=== PATIENT | male | born 1955 ===

== ENCOUNTER 2018-04-11 08:48 | Inpatient (IN) ==
[2018-04-05 11:59] LABS: Blood Urea Nitrogen 24 mg/dl (8-23)
[2018-04-05 12:08] LABS: Basophils # (Auto) 0 K/mcL (0.0-0.3); Basophils % (Auto) 0.3 % (0.0-2.0); Eosinophils # (Auto) 0.1 K/mcL (0.0-0.7); Eosinophils % (Auto) 1.6 % (0.0-7.0); Granulocytes % (Auto) 68.3 % (38.0-78.0); Lymphocytes # (Auto) 1.6 K/mcL (1.5-4.8); Lymphocytes % (Auto) 22.9 % (15.5-49.0); Mean Cell Volume 83.7 fL (80.0-100.0); Mean Corpuscular HGB Conc 32.5 g/dL (31.0-36.0); Monocytes # (Auto) 0.5 K/mcL (0.1-0.9); Monocytes % (Auto) 6.9 % (1.0-12.0); Platelet Count 203 K/mcL (140-440); RBC 5.57 M/mcL (4.50-5.90); Red Cell Distribution Width 14.6 % (11.5-14.5)
[2018-04-05 13:23] LABS: Appearance,Urine CLEAR; Bilirubin,Urine NEG (NEG); Color,Urine YELLOW; Glucose,Urine (UA) NEGATIVE (NEG); Leukocyte Esterase,Urine NEG /uL (NEG); Protein,Urine NEG (NEG); Specific Gravity,Urine 1.023 (1.000-1.035); Urine Blood NEG mg/dL (<0.03); Urobilinogen,Urine NEG (NEG)
[~2018-04-11 08:48] MED LIST: CELECOXIB 200 MG CAPSULE PO SCH; PREGABALIN 75 MG CAPSULE PO SCH; ceFAZolin 1 GM VIAL IV SCH; oxyCODONE 10 MG TAB.ER.12H PO SCH
[2018-04-11] MEDS ORDERED: SUCCINYLCHOLINE 20 MG/ML ML IV ONE (11:00)
[2018-04-11] MEDS ORDERED: fentaNYL 250 MCG/5 ML VIAL IV ONE (11:00)
[2018-04-11] MEDS ORDERED: DEXAMETHASONE 10 MG/ML VIAL IV ONE (11:00)
[2018-04-11] MEDS ORDERED: ONDANSETRON 4 MG/2 ML VIAL IV ONE (11:00)
[2018-04-11] MEDS ORDERED: ROPIVACAINE HCL/PF 30 ML VIAL IJ ONE (11:00)
[2018-04-11] MEDS ORDERED: MIDAZOLAM 5 MG/5 ML VIAL IV ONE (11:00)
[2018-04-11] MEDS ORDERED: TRANEXAMIC ACID 1,000 MG/10 ML VIAL IV ONE ×2 (11:00→12:28)
[2018-04-11] MEDS ORDERED: LIDOCAINE HCL/PF 100 MG/5 ML SYRINGE IV ONE (11:00)
[2018-04-11] MEDS ORDERED: PROPOFOL 200 MG/20 ML VIAL IV ONE (11:00)
[2018-04-11] MEDS ORDERED: GENTAMICIN SULFATE 800 MG/20 ML VIAL IR ONE (12:16)
[2018-04-11] MEDS ORDERED: PROMETHAZINE 25 MG/ML VIAL IV PRN (12:22)
[2018-04-11] MEDS ORDERED: KETOROLAC 15 MG/ML VIAL IV PRN (12:22)
[2018-04-11] MEDS ORDERED: LACTATED RINGERS 250 ML IV PRN (12:22)
[2018-04-11] MEDS ORDERED: ACETAMINOPHEN 1,000 MG/100 ML BOTTLE IV ONE (12:22)
[2018-04-11] MEDS ORDERED: NALOXONE HCL 0.4 MG/ML VIAL IV PRN (12:22)
[2018-04-11] MEDS ORDERED: ONDANSETRON 4 MG/2 ML VIAL IV PRN ×2 (12:22→12:28)
[2018-04-11] MEDS ORDERED: BENZOCAINE/MENTHOL 1 LOZENGE PO PRN ×2 (12:22→12:28)
[2018-04-11] MEDS ORDERED: MEPERIDINE 25 MG/ML SYRINGE IV PRN (12:22)
[2018-04-11] MEDS ORDERED: FLUMAZENIL 0.1 MG/ML ML IV PRN (12:22)
[2018-04-11] MEDS ORDERED: IPRATROPIUM/ALBUTEROL 3 ML AMPUL.NEB NEB PRN (12:22)
[2018-04-11] MEDS ORDERED: diphenhydrAMINE 50 MG/ML VIAL IV PRN (12:22)
--- NOTE | 2018-04-11 12:25 | Discharge Summary ---
Ortho Discharge - TSA - Patient Instructions Diet: Regular Diet Activity: non weight bearing Total Shoulder Protocol: Leave immobilizer in place except for bathing and ROM. Abduction pillow. Continue to wear sling until seen by physician. Codman Pendulum : These exercises use momentum produced by your body to move your shoulder joint. Bend your knees and shift your weight to your front leg, then back, allowing your arm to swing in the same directions. Using the same technique, alternately shift your weight between your right and left legs, allowing your arm to swing from side to side. These exercises are also performed in counterclockwise and clockwise circular motions. Typically these exercises are performed several times per day, for a set number repetitions or minutes, such as 20 times in a row or 5 minutes at a time. Dressing Care: May shower in 2 days - Follow Up Plan Follow Up Appointments: Patricia Su PA-C [Physician Corporate Legal Secretary] - 04/26/18 8:40 am Disposition: Home, Self-Care Prognosis: Good Rehab Potential: Good I certify that the patient requires SNF services: No Overall status at discharge: patient is progressing back to baseline
--- NOTE | 2018-04-11 12:25 | Brief Operative Note ---
Pre-op diagnosis: left failed tsa Post-op diagnosis: same Procedure: revision left tsa to reverse tsa Grafts/Implants: Yes Anesthesia: GETA Findings: ruptured subscapularis Complications: none Surgeon: Rasheed Cole Dependency Counselor: Patricia Su Estimated blood loss (cc): 200 Specimens Removed/Pathology: none sent Condition: stable Disposition: PACU
[2018-04-11] MEDS ORDERED: MAGNESIUM HYDROXIDE 30 ML ORAL.SUSP PO PRN (12:28)
[2018-04-11] MEDS ORDERED: ONDANSETRON 4 MG ODT TABLET SL PRN (12:28)
[2018-04-11] MEDS ORDERED: FLEETS ADULT ENEMA PR PRN (12:28)
[2018-04-11] MEDS ORDERED: POLYETHYLENE GLYCOL 3350 17 GM PACKET PO PRN (12:28)
[2018-04-11] MEDS ORDERED: KETOROLAC 30 MG/ML VIAL IV PRN (12:28)
[2018-04-11] MEDS ORDERED: BISACODYL 10 MG SUPP.RECT PR PRN (12:28)
[2018-04-11] MEDS ORDERED: LACTATED RINGERS 1,000 ML IV SCH (12:30)
[2018-04-11] MEDS: fentaNYL 100 MCG/2 ML VIAL IV PRN ×2 (13:05→13:08)
--- NOTE | 2018-04-11 13:29 | XRay Report ---
HISTORY: Postop left arthroplasty FINDINGS: The previously seen left shoulder prosthesis has been removed and replaced with a reverse shoulder prosthesis. The new prosthesis is well-positioned. There is no fracture or subluxation. Distal end of the clavicle had previously been resected. IMPRESSION: Well-positioned left shoulder prosthesis Interpreted and Authenticated by: Rob Medina 04/11/18
[2018-04-11] MEDS: 0.9 % SODIUM CHLORIDE 1,000 ML IV SCH ×2 (14:19→20:47)
[2018-04-11] MEDS: 0.9 % SODIUM CHLORIDE 10 ML SYRINGE IV SCH ×2 (14:20→22:53)
--- NOTE | 2018-04-11 14:28 | Operative Note ---
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 PROCEDURE: Revision of total shoulder arthroplasty to reverse total shoulder arthroplasty, left shoulder. SURGEON: Judy Cole M.D. JAVA CORE DEVELOPER SURGEON: Patricia Su PA-C ANESTHESIA: General. ESTIMATED BLOOD LOSS: 250 mL COMPLICATIONS: None noted. SPECIMENS REMOVED: None. DRAINS: None. IMPLANTS: DePuy cementless metaglene HARDY coated cementless, DePuy locking metaglene screw 4.5 x 30 x2, 4.5 x 18 non-locking x2, DePuy Delta XTEND eccentric glenosphere 38 mm, Delta XTEND modular eccentric epiphysis size 1 left HARDY coated cementless, DePuy Delta XTEND humeral polyethylene clip 38 +9 standard. INDICATIONS: The patient had a previous shoulder arthroplasty. He has had instability of the shoulder and radiographs and a CTA have confirmed failed subscapularis. I did not feel like it was repairable so after a long discussion about treatment options we elected to proceed with a reverse total shoulder arthroplasty. The risks and benefits were discussed with the patient in detail including, but not limited to, the risks of anesthesia, problems with the heart or lungs related to anesthesia, infection, compromise or injury to the nerves and blood vessels, deep venous thrombosis, pulmonary embolism, pneumonia, continued pain after surgery, worsening pain or symptoms after surgery, swelling, loss of motion, instability, fracture, arm length discrepancy, and need for repeat surgery. DESCRIPTION OF PROCEDURE: The patient was seen in the pre-anesthesia waiting room where all questions were answered and the correct side and site were identified and marked. The patient was transferred to the operating room and administered the anesthetic and given preoperative antibiotics. A timeout was then called. The patient was placed in the modified beach chair position with all prominences well padded. The extremity was prepped and draped from the fingers up to the neck. A standard deltopectoral skin incision was created. Dissection was carried down to the deltopectoral groove and the cephalic vein was isolated medially and retracted laterally with the deltoid. Retractors were placed and the coracobrachialis was split up to the coracoacromial ligament allowing retraction of the conjoined tendon. We visualized the subscapularis, which was found to be completely torn and retracted and was not repairable. The supraspinatus and infraspinatus were present but thinning and I cut the tendons. A capsular release was performed in a posterior subperiosteal direction along the humerus. The humeral head was then dislocated. We removed the head, then we removed the proximal base. We changed to 20 degree retroversion and then we reamed with the proximal Delta XTEND reverse total shoulder instrumentation. The proximal humerus was then cut and we placed retractors to go to the glenoid. Attention was then turned to the glenoid. Retractors were placed for optimal visualization and the labrum was excised in its entirety. We used an osteotome to remove the polyethylene. I removed the cement from the 3 pegs as well as the central reamer. A centralizing Steinmann pin was placed into the previous hole where the polyethylene liner was. We reamed over the pin to remove all the cartilage and get to a good base for the prosthesis. The drill was then placed over for the central peg. A cementless Metaglene was then impacted into place. We then drilled, measured, and placed the four screws starting inferior, then superior, then anterior, and finally posterior. The superior locking screw was lined up at the base of the coracoid process. We then impacted the head onto the Metaglene and tightened down in a standard fashion. Attention was then turned back to the humerus. Proximal reaming was performed off the intramedullary guide into the humeral head, using the eccentric guide to allow best coverage. We again set version and broached up to a stable implant. Trials were placed and good tension, motion, and stability were obtained at this point. Trials were removed and the final press fit femoral prosthesis was impacted into place with measured version. The final polyethylene was placed and the shoulder was reduced and again checked for motion, tension, and stability. We irrigated with 3 liters of antibiotic saline and closed the subscapularis with # 2 FiberWire. We irrigated again and closed the deltopectoral interval with several # 0 Vicryl figure of eight sutures. The subcutaneous layer was closed with 2-0 Vicryl and the skin was closed with 4-0 Monocryl in a subcuticular fashion. A sterile pressure dressing was applied and the patient was placed into an abduction sling. All needle and sponge counts were correct. The patient was transferred to the recovery room in stable condition. [email or web address] Job ID: [id number] Doc ID: [id number] Judy Cole MD
[2018-04-11] MEDS: ceFAZolin 1 GM VIAL IV SCH ×2 (17:20→23:25)
[2018-04-11] MEDS: HYDROcodone/APAP 10/325MG TABLET PO PRN ×2 (19:00→23:25)
[2018-04-11] MEDS: METHOCARBAMOL 750 MG TABLET PO PRN (19:00)
[2018-04-11] MEDS: DOCUSATE SODIUM 100 MG CAPSULE PO SCH (20:42)
[2018-04-11] MEDS ORDERED: SENNOSIDES 1 TABLET PO SCH (21:00)
[2018-04-12] MEDS: METHOCARBAMOL 750 MG TABLET PO PRN (03:42)
[2018-04-12] MEDS: HYDROcodone/APAP 10/325MG TABLET PO PRN ×2 (03:42→08:04)
[2018-04-12] MEDS: 0.9 % SODIUM CHLORIDE 1,000 ML IV SCH (04:44)
[2018-04-12] MEDS: 0.9 % SODIUM CHLORIDE 10 ML SYRINGE IV SCH (05:01)
--- NOTE | 2018-04-12 07:52 | Orthopedic Progress Note ---
Subjective Patient information: Note initiated : 04/12/18 at 7:51 am Service Date, if different from initiated Date: [] Patient: Brenden Mitchell 62 y/o M admitted on 04/11/18 for Left Total Shoulder Arthroplasty Converting to. Chief Complaint: [] Interval history: doing well. no complaints Objective Vital signs: Vital Signs Temp Pulse Pulse Resp BP BP Pulse Ox 04/12/18 03:38 98.5 F 90 18 113/82 94 04/11/18 23:22 97.9 F 87 18 118/76 91 04/11/18 20:20 98.3 F 99 H 22 130/86 93 04/11/18 20:00 93 04/11/18 16:56 91 H 133/82 96 04/11/18 16:28 89 04/11/18 15:56 89 127/83 96 04/11/18 15:26 86 120/70 98 04/11/18 14:56 89 145/91 98 04/11/18 14:41 89 153/91 98 04/11/18 14:26 86 154/94 98 04/11/18 14:11 84 158/95 98 04/11/18 13:57 85 167/96 98 04/11/18 13:40 98 04/11/18 13:35 98.1 F 89 16 161/90 97 04/11/18 13:25 97.3 F 84 12 175/99 97 04/11/18 13:10 96.7 F L 81 11 L 146/104 100 04/11/18 13:00 87 14 162/102 100 04/11/18 12:55 91 H 18 160/103 100 04/11/18 12:50 85 17 153/92 99 04/11/18 12:45 83 20 137/85 95 04/11/18 12:43 97.5 F 83 16 132/86 99 04/11/18 10:01 98.2 F 90 18 140/89 95 Intake and Output 04/11/18 04/12/18 04/12/18 21:59 05:59 13:59 Intake Total 490 1480 180 Output Total 400 Balance 490 1080 180 Intake: IV 1000 Sodium Chloride 0.9% 1,000 ml @ 1000 125 mls/hr IV .Q8H [facility] Rx#: [id number] Oral 240 480 180 GI Tube Flush 250 Output: Void Amount 400 Other: Meal Dinner Percent of Meal Consumed 100% Feeding Ability Independent Urine Appearance Cloudy Urine Color Straw Urine Odor Normal # Voids 1 Weight 234 lb 6.4 oz Intake & Output: Intake & Output 04/11/18 04/12/18 04/12/18 21:59 05:59 13:59 Intake Total 490 1480 180 Output Total 400 Balance 490 1080 180 Weight 234 lb 6.4 oz Intake: IV 1000 Sodium Chloride 0.9% 1,000 ml @ 1000 125 mls/hr IV .Q8H [facility] Rx#: [id number] Oral 240 480 180 GI Tube Flush 250 Output: Void Amount 400 Other: Meal Dinner Percent of Meal Consumed 100% Feeding Ability Independent Urine Appearance Cloudy Urine Color Straw Urine Odor Normal # Voids 1 Incision: Yes healing Incision clean and dry: Yes Dressing: Yes clean, Yes dry, Yes intact Weight bearing status: non Neurological exam IM: Yes alert, Yes normal gait, Yes oriented X3, Yes motor sensory intact, Yes neurovascular intact Extremities exam IM: No calf tenderness, Yes Foot pink and warm, Yes neurovascular intact - Labs CBC & BMP: 04/12/18 04:36 04/05/18 09:32 Labs: 04/12/18 04/05/18 04:36 09:32 Hgb 13.2 L 15.1 Hct 40.1 L 46.6 Assessment and Plan (1) Shoulder pain, left pod 1 s/p reverse tsa nwb sling pain control home today Status: Chronic Comment: Catching, numbness and burning pain
[2018-04-12] MEDS: DOCUSATE SODIUM 100 MG CAPSULE PO SCH (08:38)
[2018-04-12] MEDS ORDERED: NON FORMULARY MEDICATION 1 DOSE MISCELL (Benazepril 20 MG) PO SCH (09:00)
[2018-04-12] MEDS ORDERED: LISINOPRIL 20 MG TABLET PO SCH (09:00)
== END 2018-04-12 10:05 | disposition home or self-care (01) | DRG 483 ==
LOC: MEDSUR 08:48
PROVIDERS: ADMIT Orthopaedic Surgery Sports Medicine; ATTEND Orthopaedic Surgery Sports Medicine